=== PATIENT | female | born 1975 | race Caucasian/White ===

== ENCOUNTER → 2017-06-21 | Outpatient (CLI) | payer BC ==
[~2017-06-21] MED LIST: MULT-506 PO; SYN88 PO
--- NOTE | 2017-06-21 13:37 | DIAGNOSTIC IMAGING REPORT ---
PELVIC ULTRASOUND CLINICAL HISTORY: Abnormal bleeding. COMPARISON STUDY: Pelvic ultrasound July 15, 2016. TECHNIQUE: Transabdominal and transvaginal sonography of the pelvis was performed. FINDINGS: The uterus measures 9.3 x 4.2 x 5.9 cm. Endometrium measures 8 mm in thickness. No well-defined uterine mass is identified. The right ovary measures 4.1 x 2 x 3.5 cm and contains a 2.8 cm cyst. The left ovary measures 2.6 x 2.1 x 2.4 cm. There is color flow within each ovary. There is no free fluid. IMPRESSION: 1. No significant abnormality within the pelvis by sonography. Endometrial thickness of 8 mm. 2. 2.8 cm right ovarian cyst. Electronically signed by: Jett Salvador M.D. 06/21/2017 1:36 PM Dictated Date/Time: 06/21/2017 1:34 PM
== END | disposition home or self-care (01) ==
LOC: C.ULTR 12:42
PROVIDERS: ATTEND Student in an Organized Health Care Education/Training Program
DX: N93.9 Abnormal uterine and vaginal bleeding, unspecified (principal); N83.201 Unspecified ovarian cyst, right side